=== PATIENT | female | born 1995 | race Caucasian/White ===

== ENCOUNTER 2022-02-06 12:44 | Outpatient (CLI) | payer OTHER, SELFPAY ==
--- NOTE | ~2022-02-06 | XR_ITS ---
EXAMINATION: XR hysterosalpingogram DATE: 02/06/2022 13:13 INDICATION: Infertility. TECHNIQUE: Fluoroscopy was performed by the radiologist during contrast infusion into the endometrial cavity of the uterus by the primary physician. Fluoroscopy exposure time was 0.7 minutes. The total number of images was 4. FINDINGS: The intrauterine cavity is normal in morphology. Right fallopian tube is normal in caliber. There is normal free intraperitoneal spillage of contrast on the right. There is partial opacificati on of left fallopian tube, which is normal in caliber. There is no visible spillage of contrast on th e left. IMPRESSION: 1. Occluded left fallopian tube. Patent right fallopian tube.. Reviewed, dictated and finalized at location A.
== END 2022-02-06 12:45 | disposition home or self-care (01) ==
PROVIDERS: Visit Provider Obstetrics & Gynecology
DX: N97.1 Female infertility of tubal origin (principal)
CPT/HCPCS: 58340; 74740; Q9966